=== PATIENT | male | born 1970 | race Caucasian/White ===

== ENCOUNTER 2022-01-17 07:33 | Emergency (ER) | payer OTHER ==
[~2022-01-17] VITALS: Ht 177.8 cm; Wt 90.7 kg
[2022-01-17] MEDS ORDERED: Norco 5-325 Ta1 EACH PO (09:30)
[2022-01-17] MEDS ORDERED: NAPR500 PO (09:30)
[2022-01-17] MEDS ORDERED: CRUTCH4 XX (09:30)
== END 2022-01-17 09:48 | disposition home or self-care (01) ==
LOC: ER 07:33 → EDBD 07:33 → ER 09:48
DX: M25.572 Pain in left ankle and joints of left foot (principal)
CPT/HCPCS: 73610; 96372; 99283-25; J1885